=== PATIENT | male | born 2000 | race Two or more races ===

== ENCOUNTER 2025-10-06 18:58 | Emergency (ER) | payer MEDICAID ==
[~2025-10-06] VITALS: Ht 162.6 cm; Wt 69.9 kg
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
--- NOTE | 2025-10-06 20:23 | DVH ---
EXAM: CT CERVICAL WITHOUT CONTRAST INDICATION: [facility] TECHNIQUE: Non contrast axial images of the cervical spine have been obtained with coronal and sagittal reformatted images. CT scans at this facility use dose modulation, iterative reconstruction, and/or weight based dosing when appropriate to reduce radiation dose to as low as reasonably achievable. COMPARISON: None FINDINGS: ANATOMY: Cervical lordosis is maintained. VERTEBRAL BODIES: The vertebral bodies are normal in height and alignment. The dens is intact, the lateral masses of C1 are normally aligned, and the atlantodental interval is normal for age. SPINAL CANAL: No significant spinal canal stenosis. INTERVERTEBRAL DISCS: No CT findings to suggest traumatic disc herniation or acute hematoma. SOFT TISSUES: There is no prevertebral soft tissue swelling. OTHER: The partially visualized lung apices are clear. IMPRESSION: 1. No acute cervical spine fracture or malalignment.
[2025-10-06] MEDS ORDERED: KETOROLAC TROMETH 30 MG/ML 1ML VIAL IM ONE (20:45)
[2025-10-06] MEDS ORDERED: ACETAMINOPHEN 325 MG TAB PO ONE (20:45)
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
[2025-10-06 21:23] VITALS: PULSE 123; RESP 12; O2SAT 97
[2025-10-06 21:43] LABS: Hematocrit 43.3 % (41.0-53.0); Hemoglobin 14.9 g/dL (13.5-17.5); Mean Corpuscular Hemoglobin 30.5 pg (28.0-32.0); Mean Corpuscular Volume 89.1 fL (80.0-100.0); Nucleated Red Blood Cells % 0.0 %
[2025-10-06] MEDS: levETIRAcetam 1000 mg/100ml 100 ML IV ONE (21:45)
[2025-10-06] MEDS: ACETAMINOPHEN IV 1000 MG/100ML (10MG/ML) IV ONE (21:46)
[2025-10-06] MEDS ORDERED: IOHEXOL 350 MG/ML 100ML IJ ONE (21:50)
[2025-10-06 21:53] LABS: INR 1.05 (0.9-1.15); Prothrombin Time 11.1 sec (9.3-11.8)
[2025-10-06 21:57] LABS: Albumin 5.1 g/dL (3.2-4.8); Alkaline Phosphatase 108 U/L (46-116); Anion Gap 12 (5-15); BUN/Creatinine Ratio 13.0 (10.0-20.0); Bilirubin, Total 0.9 mg/dL (0.2-1.0); Blood Urea Nitrogen 12 mg/dL (9-23); Calcium 9.6 mg/dL (8.7-10.4); Carbon Dioxide 27 mmol/L (20-31); Chloride 102 mmol/L (98-107); Glucose 106 mg/dL (74-106); Potassium 4.2 mmol/L (3.5-5.1); Sodium 141 mmol/L (136-145); Total Protein 7.8 g/dL (5.7-8.2)
[2025-10-06] MEDS: ONDANSETRON HCL 4 MG/2 ML VIAL IV ONE (22:01)
[2025-10-06] MEDS: MORPHINE SULFATE INJ 2 MG/ml SYRG IV ONE (22:01)
[2025-10-06] MEDS: MORPHINE SULFATE 4 MG/ML SYR/VIAL ONE (22:02)
[2025-10-06 22:10] LABS: Alanine Aminotransferase 38 U/L (7-40)
[2025-10-06 22:24] VITALS: BP 143/90; PULSE 110; RESP 14; TEMP 98.3; O2SAT 91
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
== END 2025-10-06 22:34 | disposition short-term general hospital (02) ==
LOC: ER 18:58
DX: S06.340A Traumatic hemorrhage of right cerebrum without loss of consciousness, initial encounter (principal); R04.2 Hemoptysis; H57.11 Ocular pain, right eye; M54.9 Dorsalgia, unspecified; M54.2 Cervicalgia; R06.02 Shortness of breath; V87.8XXA Person injured in other specified noncollision transport accidents involving motor vehicle (traffic), initial encounter; Y93.55 Activity, bike riding; Y92.89 Other specified places as the place of occurrence of the external cause; Y99.8 Other external cause status
CPT/HCPCS: 36415; 70450; 72125; 72128; 80053; 85025; 85610; 96365; 96368; 96375; 99285; J1100; J1953; J2270; J2405; J7060; 96374; J0131